=== PATIENT | male | born 1940 | race Caucasian/White ===

== ENCOUNTER 2016-10-01 11:57 | Emergency (ER) | payer MEDICARE ==
[~2016-10-01] VITALS: Ht 167.6 cm; Wt 67.0 kg
[~2016-10-01 11:57] MED LIST: ALLO100T PO; ALPR0.25 PO; HYDR25TA5 PO; LEVO75TA3 PO; LISI10TA3 PO; LOVA10TA PO; OCUSPAD EACH EYE; PANT40TA3 PO; PRED1SUS EACH EYE; TEMA15CA PO
[2016-10-01 12:01] VITALS: BP 136/76; PULSE 58; RESP 16; TEMP 97.4; O2SAT 96
--- NOTE | 2016-10-01 12:40 | PD ---
HPI Chief Complaint: Wound/Suture/Staple Re-Check Time Seen by Provider: 12:15 Travel History International Travel<30 days: No Contact w/Intl Traveler<30days: No Traveled to known affect area: No History of Present Illness HPI 76-year-old male presents to the emergency room for evaluation of skin wound/ skin graft. Patient had Mohs surgery 21 days ago at [facility] in [place]. States he had no follow-up or wound care instructions. He presents today concerned about delayed healing of the skin graft donor site on his right thigh. Patient has been applying Tegaderm daily and is concerned because the wound continues to weep and open with dressing changes. He denies any significant pain or drainage. Denies fever, chills, nausea, or vomiting. 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) Cardiovascular Problems: Yes Diminished Hearing: No GERD: Yes Hiatal Hernia: Yes (NO REPAIR) Hypertension: Yes Inguinal Hernia: Yes (RIGHT GROIN REPAIRED) Immunizations Current: Yes Radiation Therapy: Yes (PROSTATE) Thyroid Disease: Yes Tetanus Vaccination: < 5 Years Influenza Vaccination: No Past Surgical History Abdominal Surgery: Yes (HERNIA REPAIR) Tonsillectomy: Yes Other Surgery: Yes (MELANOMA REMOVED FROM BACK, SKIN GRAFT FROM LEFT LEG) Social History Alcohol Use: Yes (OCCASIONAL) Tobacco Use: No Substance Use: No Allergies-Medications (Allergen,Severity, Reaction): Coded Allergies: Doxycycline (Verified Allergy, Severe, Nausea/Vomiting, 10/01/16) Reported Meds & Prescriptions Reported Meds & Active Scripts Active Reported Pred Forte Opth 1% (Prednisolone Acetate Opth 1%) 1% Susp 1 Drop EACH EYE DAILY Alprazolam 0.25 Mg Tab 0.25 Mg PO Q4H PRN Lovastatin 10 Mg Tab 10 Mg PO DAILY Pantoprazole (Pantoprazole Sodium) 40 Mg Tab 40 Mg PO DAILY Lisinopril 10 Mg Tab 10 Mg PO DAILY Temazepam 15 Mg Cap 15 Mg PO HS PRN Levothyroxine (Levothyroxine Sodium) 75 Mcg Tab 75 Mcg PO DAILY Hydrochlorothiazide 25 Mg Tab 25 Mg PO DAILY Allopurinol 100 Mg Tab 100 Mg PO DAILY Review of Systems Except as stated in HPI: all other systems reviewed are Neg Physical Exam Narrative GENERAL: Well-developed, well-nourished male in no acute distress. Afebrile. Ambulatory. SKIN: Focused skin assessment warm/dry. There is an 8 by 6 cm square skin graft donor site on the right anterior thigh. There is no purulent drainage. The wound is red with areas of epithelialization. The very thin epithelialization is sheared at places exposing the underlying tissue. HEAD: Atraumatic. Normocephalic. EYES: Pupils equal and round. No scleral icterus. No injection or drainage. NECK: Trachea midline. No JVD. CARDIOVASCULAR: Regular rate and rhythm. No murmur appreciated. RESPIRATORY: No accessory muscle use. Clear to auscultation. Breath sounds equal bilaterally. NEUROLOGICAL: Awake and alert. No obvious cranial nerve deficits. Motor grossly within normal limits. Normal speech. Data Data Last Documented VS Vital Signs Date Time Temp Pulse Resp B/P Pulse Ox O2 Delivery O2 Flow Rate FiO2 10/01/16 12:01 97.4 58 16 136/76 96 MDM Medical Decision Making Medical Screen Exam Complete: Yes Emergency Medical Condition: Yes Medical Record Reviewed: Yes Differential Diagnosis Wound care, skin graft, infection Narrative Course 76-year-old male presents to the emergency room requesting evaluation of skin graft donor site from 21 days ago. Patient has not followed up with anyone since having Mohs surgery performed at [facility]. There is an 8 by 6 cm square skin graft donor site on the right anterior thigh. There is no purulent drainage. The wound is red with areas of epithelialization. The very thin epithelialization is sheared at places exposing the underlying tissue. There is absolutely no evidence of infection. Patient has been applying Tegaderm to his wound daily. I believe the Tegaderm has been sharing and ripping the extremely delicate/fragile new epithelial skin of the graft. He was educated on wound care and given nonstick dressings and told to try to immobilize the area as much as possible without risking DVT or pneumonia. He was told to follow-up with his surgeon or return for worsening symptoms. He understands and agrees to plan. Diagnosis Primary Impression: Encounter for wound care Referrals: [facility] Patient Instructions: Acute Wound Care (ED), General Instructions Additional Instructions: Apply non-stick dressings daily. Return for any evidence of infection such as sick yellow or green drainage. Follow-up with your surgeon. Disposition: DISCHARGE HOME Condition: Stable Chanelle Masters Oct 01, 2016 12:40
== END 2016-10-01 12:52 | disposition home or self-care (01) ==
LOC: PHEFT 11:57
DX: R23.8 Other skin changes (principal); I10 Essential (primary) hypertension; E07.9 Disorder of thyroid, unspecified; Z48.817 Encounter for surgical aftercare following surgery on the skin and subcutaneous tissue; Z85.46 Personal history of malignant neoplasm of prostate; Z86.79 Personal history of other diseases of the circulatory system; Z87.19 Personal history of other diseases of the digestive system
CPT/HCPCS: 99282

== ENCOUNTER 2017-04-05 04:35 | Emergency (ER) | payer MEDICARE ==
[~2017-04-05] VITALS: Ht 167.6 cm; Wt 69.7 kg
[~2017-04-05 04:35] MED LIST changes: -OCUSPAD EACH EYE
[2017-04-05 04:40] VITALS: BP 139/67; PULSE 76; RESP 20; TEMP 98.9; O2SAT 99
[2017-04-05] MEDS ORDERED: SODIUM CHLORIDE 0.9% FLUSH 10 ML FLUSH IVF PRN (05:15)
--- NOTE | 2017-04-05 05:34 | PD ---
HPI Chief Complaint: Complaint Time Seen by Provider: 05:09 Travel History International Travel<30 days: No Contact w/Intl Traveler<30days: No Traveled to known affect area: No History of Present Illness HPI 77-year-old male presents to the emergency department complaining of 1 week of decreased urine output and urinary frequency with hematuria. No fever no chills no nausea no vomiting no generalized abdominal pain no flank pain and no prior history of hematuria. Patient takes no blood thinning agents. Patient rates discomfort as mild to moderate. Patient has not followed up with his primary care provider. Patient presents at this time due to noticing some small clots in his urine this morning. 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) Cardiovascular Problems: Yes Diabetes: Yes Patient Takes Glucophage: No Diminished Hearing: No GERD: Yes Hiatal Hernia: Yes (NO REPAIR) Hypertension: Yes Inguinal Hernia: Yes (RIGHT GROIN REPAIRED) Immunizations Current: Yes Radiation Therapy: Yes (PROSTATE) Thyroid Disease: Yes Past Surgical History Abdominal Surgery: Yes (HERNIA REPAIR) Tonsillectomy: Yes Other Surgery: Yes (MELANOMA REMOVED FROM BACK, SKIN GRAFT FROM LEFT LEG) Social History Alcohol Use: Yes (OCCASIONAL) Tobacco Use: No Substance Use: No Allergies-Medications (Allergen,Severity, Reaction): Coded Allergies: doxycycline (Unverified Allergy, Severe, Nausea/Vomiting, 04/05/17) Reported Meds & Prescriptions Reported Meds & Active Scripts Active Reported Aspirin 81 Mg Chew 81 Mg CHEW DAILY Pred Forte Opth 1% (Prednisolone Acetate Opth 1%) 1% Susp 1 Drop EACH EYE DAILY Alprazolam 0.25 Mg Tab 0.25 Mg PO Q4H PRN Lovastatin 10 Mg Tab 10 Mg PO DAILY Pantoprazole (Pantoprazole Sodium) 40 Mg Tab 40 Mg PO DAILY Lisinopril 10 Mg Tab 10 Mg PO DAILY Temazepam 15 Mg Cap 15 Mg PO HS PRN Levothyroxine (Levothyroxine Sodium) 75 Mcg Tab 75 Mcg PO DAILY Hydrochlorothiazide 25 Mg Tab 25 Mg PO DAILY Allopurinol 100 Mg Tab 100 Mg PO DAILY Review of Systems Except as stated in HPI: all other systems reviewed are Neg Physical Exam Narrative GENERAL: Well-developed well-nourished elderly male in no acute distress or respiratory distress SKIN: Warm and dry. HEAD: Normocephalic. EYES: No scleral icterus. No injection or drainage. NECK: Supple, trachea midline. No JVD or lymphadenopathy. CARDIOVASCULAR: Regular rate and rhythm without murmurs, gallops, or rubs. RESPIRATORY: Breath sounds equal bilaterally. No accessory muscle use. GASTROINTESTINAL: Abdomen soft, non-tender, nondistended. MUSCULOSKELETAL: No cyanosis, or edema. BACK: Nontender without obvious deformity. No CVA tenderness. Data Data Last Documented VS Vital Signs Date Time Temp Pulse Resp B/P (MAP) Pulse Ox O2 Delivery O2 Flow Rate FiO2 04/05/17 04:40 98.9 76 20 139/67 (91) 99 Orders Orders Complete Blood Count With Diff (04/05/17 05:09) Basic Metabolic Panel (Bmp) (04/05/17 05:09) Urinalysis - C+S If Indicated (04/05/17 05:09) Ct Abd/Pel W/O Iv Contrast (04/05/17 05:09) Ecg Monitoring (04/05/17 05:09) Iv Access Insert/Monitor (04/05/17 05:09) Sodium Chloride 0.9% Flush (Ns Flush) (04/05/17 05:15) Urine Culture (04/05/17 05:15) Ceftriaxone Inj (Rocephin Inj) (04/05/17 06:15) Ed Discharge Order (04/05/17 06:02) Labs Laboratory Tests Test 04/05/17 05:15 04/05/17 05:35 Urine Color DALE Urine Turbidity CLOUDY Urine pH 6.0 Urine Specific [place] 1.020 Urine Protein 300 OR GREATER mg/dL Urine Glucose (UA) NEG mg/dL Urine Ketones NEG mg/dL Urine Occult Blood LARGE Urine Nitrite NEG Urine Bilirubin NEG Urine Leukocyte Esterase LARGE Urine RBC INNUM /hpf Urine WBC INNUM /hpf Urine Squamous Epithelial Cells 0-5 /hpf Urine Bacteria OCC /hpf Microscopic Urinalysis Comment CULTURE INDICATED White Blood Count 12.0 TH/MM3 Red Blood Count 4.26 MIL/MM3 Hemoglobin 14.3 GM/DL Hematocrit 40.0 % Mean Corpuscular Volume 93.7 FL Mean Corpuscular Hemoglobin 33.5 PG Mean Corpuscular Hemoglobin Concent 35.7 % Red Cell Distribution Width 13.4 % Platelet Count 164 TH/MM3 Mean Platelet Volume 7.3 FL Neutrophils (%) (Auto) 85.5 % Lymphocytes (%) (Auto) 7.1 % Monocytes (%) (Auto) 5.9 % Eosinophils (%) (Auto) 1.1 % Basophils (%) (Auto) 0.4 % Neutrophils # (Auto) 10.3 TH/MM3 Lymphocytes # (Auto) 0.9 TH/MM3 Monocytes # (Auto) 0.7 TH/MM3 Eosinophils # (Auto) 0.1 TH/MM3 Basophils # (Auto) 0.0 TH/MM3 CBC Comment DIFF FINAL Differential Comment Blood Urea Nitrogen 33 MG/DL Creatinine 2.00 MG/DL Random Glucose 160 MG/DL Calcium Level 8.7 MG/DL Sodium Level 135 MEQ/L Potassium Level 3.9 MEQ/L Chloride Level 100 MEQ/L Carbon Dioxide Level 26.9 MEQ/L Anion Gap 8 MEQ/L Estimat Glomerular Filtration Rate 33 ML/MIN MDM Medical Decision Making Medical Screen Exam Complete: Yes Emergency Medical Condition: Yes Medical Record Reviewed: Yes Interpretation(s) Urinalysis: Large blood innumerable white blood cells red blood cells bacteria present culture indicated Last Impressions Abdomen/Pelvis CT 04/05/17 0509 Signed Impressions: Service Date/Time: March 05:21 - CONCLUSION: 1. Abnormal appearance of urinary bladder with circumferential bladder wall thickening and perivesical stranding. A cystitis may have this appearance. 2. The left seminal vesicle appears enlarged as compared to the right. The possibility of mass cannot be excluded. 3. Atrophic right kidney. 4. Atherosclerosis. Reggie Garzon MD CBC & BMP Diagram 04/05/17 05:35 Calcium Level 8.7 Vital Signs Date Time Temp Pulse Resp B/P (MAP) Pulse Ox O2 Delivery O2 Flow Rate FiO2 04/05/17 04:40 98.9 76 20 139/67 (91) 99 Differential Diagnosis Hematuria, UTI, cystitis, bladder mass, renal mass, coagulopathy, anemia, renal insufficiency, renal colic, obstructive uropathy Narrative Course IV access obtained specimens collections of resulting CT imaging ordered Lab values and urinalysis resulted along with CT which shows thickening of the bladder wall consistent with cystitis; patient given first dose of antibiotic IV Rocephin 1 dose and will be discharged with prescription for antibiotic and recommendation for close follow-up with urologist Diagnosis Primary Impression: Cystitis Referrals: Primary Care Physician call for appointment Urologist call for appointment Patient Instructions: General Instructions Additional Instructions: Increase fluid hydration Complete course of antibiotic as prescribed Return to the emergency department for any concerns or change in condition Take acetaminophen/Tylenol every 4 hours as needed for fever 100.4F or greater May take as tolerated ibuprofen 400-600 mg every 6-8 hours as needed for pain associated inflammation avoid high-dose ibuprofen/Advil/Motrin use for greater than 1-2 days Follow-up with urologist call office in a.m. to schedule follow-up appointment Follow-up with primary care provider call office in a.m. to schedule follow-up appointment Med/Other Pt SpecificInfo: Prescription(s) given Scripts Sulfamethoxazole-Trimethoprim (Bactrim DS) 800-160 Mg Tab 1 TAB PO BID for Infection, #20 TAB 0 Refills Prov: Marysol Horne MD 04/05/17 Phenazopyridine (Pyridium) 100 Mg Tab 100 MG PO Q8H Y for DYSURIA, #6 TAB 0 Refills Prov: Marysol Horne MD 04/05/17 Ondansetron Odt (Zofran Odt) 4 Mg Tab 4 MG SL Q6HR Y for Nausea/Vomiting, #10 TAB 0 Refills Prov: Marysol Horne MD 04/05/17 Disposition: 01 DISCHARGE HOME Condition: Stable Marysol Horne MD Apr 05, 2017 05:34
--- NOTE | 2017-04-05 05:38 | RADRPT ---
EXAM DATE/TIME: 04/05/2017 05:21 [facility] COMPARISON: No previous studies available for comparison. INDICATIONS : Hematuria with urinary frequence and urgency. ORAL CONTRAST: No oral contrast ingested. RADIATION DOSE: 15.40 CTDIvol (mGy) MEDICAL HISTORY : Carcinoma, prostate. Gastroesophageal reflux disease. Hernia, hiatal.Hernia, inguinal. SURGICAL HISTORY : Inguinal hernia repair. Radiation, prostate. ENCOUNTER: Initial ACUITY: 1 week PAIN SCALE: 0/10 LOCATION: abdomen TECHNIQUE: Volumetric scanning of the abdomen and pelvis was performed. Using automated exposure control and ad justment of the mA and/or kV according to patient size, radiation dose was kept as low as reasonably achievable to obtain optimal diagnostic quality images. DICOM format image data is available electro nically for review and comparison. FINDINGS: Liver, adrenals, gallbladder unremarkable. Calcified splenic granulomas are present as well as mild s plenomegaly up to 13 cm. There is partial fatty replacement of the pancreatic parenchyma. The right k idney is atrophic. No calculi or hydronephrosis. Left kidney is normal in appearance. The fat contain ing left inguinal hernia. There are 4 metallic markers at the level of the prostate gland. There is d iverticulosis of the sigmoid colon without diverticulitis. The appendix is normal. Atherosclerotic ca lcifications of the aorta and iliac vessels are noted. There is no adenopathy or aneurysm. There is c ircumferential bladder wall thickening identified in the perivesical stranding. A cystitis may have t his appearance. The left seminal vessel is asymmetric from the right, enlarged as compared to the rig ht measuring 2.3 x 3.1 cm in AP and transverse dimension. CONCLUSION: 1. Abnormal appearance of urinary bladder with circumferential bladder wall thickening and perivesica l stranding. A cystitis may have this appearance. 2. The left seminal vesicle appears enlarged as compared to the right. The possibility of mass cannot be excluded. 3. Atrophic right kidney. 4. Atherosclerosis. Reggie Garzon MD on April 05, 2017 at 5:33 Board Certified Radiologist. This report was verified electronically.
[2017-04-05 05:47] LABS: BLOOD, URINE LARGE (NEG); GLUCOSE,URINE NEG (NEG); KETONE, URINE NEG (NEG); NITRITE,URINE NEG (NEG); URINE LEUKOCYTE ESTERASE LARGE (NEG)
[2017-04-05] MEDS ORDERED: ASPI-516 CHEW (05:53)
[2017-04-05 05:58] LABS: BILIRUBIN, URINE NEG (NEG)
[2017-04-05 05:58] LABS: AUTOMATED NEUTROPHIL # 10.3 TH/MM3 (1.8-7.7); BASOPHIL % 0.4 % (0.0-2.0); EOSINOPHIL # 0.1 TH/MM3 (0-0.4); EOSINOPHIL % 1.1 % (0.0-4.0); HEMOGLOBIN 14.3 GM/DL (13.0-17.0); LYMPH % 7.1 % (9.0-44.0); LYMPHOCYTE # 0.9 TH/MM3 (1.0-4.8); MEAN CELL VOLUME 93.7 FL (80.0-100.0); MEAN CORPUSCULAR HEMOGLOBIN 33.5 PG (27.0-34.0); MEAN CORPUSCULAR HGB CONC 35.7 % (32.0-36.0); MEAN PLATELET VOLUME 7.3 FL (7.0-11.0); MONO % 5.9 % (0.0-8.0); MONOCYTE # 0.7 TH/MM3 (0-0.9); NEUT % 85.5 % (16.0-70.0); PLATELET COUNT 164 TH/MM3 (150-450); RED BLOOD COUNT 4.26 MIL/MM3 (4.50-5.90); RED CELL DISTRIBUTION WIDTH 13.4 % (11.6-17.2)
[2017-04-05 05:59] LABS: URINE COLOR AMBER (YELLW/STRAW)
[2017-04-05 06:00] LABS: BACTERIA, URINE OCC /hpf; RBC, URINE INNUM /hpf (0-3); SQUAMOUS EPITHELIAL CELL URINE 0-5 /hpf (0-5); WBC, URINE INNUM /hpf (0-5)
[2017-04-05 06:02] LABS: CALCIUM 8.7 MG/DL (8.5-10.1)
[2017-04-05 06:03] LABS: BICARBONATE 26.9 MEQ/L (21.0-32.0)
[2017-04-05] MEDS ORDERED: PHEN0.4T PO (06:14)
[2017-04-05] MEDS ORDERED: ZOFR4TAB3 SL (06:14)
[2017-04-05] MEDS ORDERED: BACT800T5 PO (06:14)
[2017-04-05] MEDS ORDERED: cefTRIAXone INJ 1,000 MG in SODIUM CHLORIDE 0.9% INJ 100 ML IV ONE (06:15)
[2017-04-05 06:52] VITALS: BP 147/68
== END 2017-04-05 06:56 | disposition home or self-care (01) ==
LOC: PHED 04:35
DX: N30.91 Cystitis, unspecified with hematuria (principal); I10 Essential (primary) hypertension; E11.9 Type 2 diabetes mellitus without complications; E03.9 Hypothyroidism, unspecified; Z85.46 Personal history of malignant neoplasm of prostate; Z85.820 Personal history of malignant melanoma of skin; Z88.8 Allergy status to other drugs, medicaments and biological substances; Z79.82 Long term (current) use of aspirin; Z79.899 Other long term (current) drug therapy
CPT/HCPCS: 74176; 80048; 81001; 85025; 87086; 96365; 99284; J0696